=== PATIENT | male | born 1990 | race Caucasian/White ===

== ENCOUNTER 2017-04-14 18:03 | Emergency (ER) | payer BC ==
[~2017-04-14] VITALS: Ht 182.9 cm; Wt 79.4 kg
[~2017-04-14 18:03] MED LIST: BACTRIM DS TAB1 EACH PO; CEPHALEXIN500 MG PO; NORCO 5-325 TA1 EACH PO; ULTRAM50 MG PO
[2017-04-14] MEDS ORDERED: KEFLEX500 MG PO (19:27)
[2017-04-14] MEDS ORDERED: BACTRIM DS TAB1 EACH PO (19:27)
[2017-04-14] MEDS ORDERED: TRAMADOL HCL50 MG PO (19:28)
== END 2017-04-14 20:07 | disposition home or self-care (01) ==
LOC: ED 18:03
DX: L03.011 Cellulitis of right finger (principal)
CPT/HCPCS: 80053; 85025; 87070; 87077; 87186; 87205; 96374; 99283; J0690

== ENCOUNTER 2017-08-30 10:50 | Emergency (ER) | payer OTHER, BC ==
[~2017-08-30] VITALS: Ht 182.9 cm; Wt 79.4 kg
[~2017-08-30 10:50] MED LIST changes: +KEFLEX500 MG PO; +TRAMADOL HCL50 MG PO
[2017-08-30] MEDS ORDERED: NORCO 5-325 TA1 EACH PO (12:30)
== END 2017-08-30 12:41 | disposition home or self-care (01) ==
LOC: ED 10:50
DX: S30.22XA Contusion of scrotum and testes, initial encounter (principal); W06.XXXA Fall from bed, initial encounter
CPT/HCPCS: 76870; 99284